=== PATIENT | male | born 1935 | race Caucasian/White ===

== ENCOUNTER 2019-01-20 07:59 | Inpatient (IN) | payer OTHER, MEDICAID ==
--- NOTE | 2019-01-20 08:04 | EDPHY ---
HPI/HX/ROS/PE/MDM Narrative: CHIEF COMPLAINT: Right hip pain following unwitnessed fall HPI: This patient is an 83 year old male with history of dementia, hyperthyroidism, and cancer. He arrives today via EMS from his assisted living facility complaining of right hip pain following an unwitnessed fall. He was found down yesterday evening, having had an episode of diarrhea. Staff at his assisted living facility helped him into bed and he was able to sleep with Tylenol and clonazepam. This morning, he continued to complain of pain to the right hip, and staff called for EMS. EMS reports they noted a possible deformity to the right hip. No recent illness or other traumatic events reported. HPI largely obtained from EMS, firearms instructor, and daughter at bedside secondary to the patient's advanced dementia and limited speech capability. REVIEW OF SYSTEMS: A comprehensive 10 system review of systems is otherwise negative aside from elements mentioned in the history of present illness and medical decision making. PMH: Dementia. History of cancer s/p lymphadenectomy. Hyperthyroidism. SOCIAL HISTORY: Lives at [place]. Daughter and firearms instructor at bedside. PHYSICAL EXAM: Limited due to patient's dementia. General:Patient is alert, in no acute distress. ENT:Eyes are normal to inspection. ENT inspection normal. Neck: Normal inspection. Full range of motion. Respiratory:No respiratory distress. Breath sounds normal bilaterally. Cardiovascular: Regular rate and rhythm. Strong peripheral pulses. Normal cap refill. Abdomen:The abdomen is nontender to palpation. There are no peritoneal signs. Back: Normal to inspection. No tenderness to palpation. Skin: Normal color. No rash. Warm and dry. Extremities: Right hip tenderness. Otherwise atraumatic. Neuro: No focal deficits. ED Course: 8:03 Met EMS at bedside. 83 y/o male with history of dementia present with right hip pain following an unwitnessed fall yesterday evening. Exam reveals right hip tenderness.Exam limited due to patient's advanced dementia, but no other acute traumatic processes noted, no focal neuro deficits. Plan for x-ray of the right hip. IV established, plan for labs including CBC, chemistries. Plan to administer 2mg IV morphine for symptom relief. 8:50 Reviewed x-ray. Evidence of acute right femoral neck fracture. I discussed this with the patient's daughter. I recommended she discuss risks and benefits of surgical correction with the orthopedic surgeon. Plan to admit the patient to medicine with ortho consult. The patient's daughter is comfortable with this plan. 8:56 Spoke with hospitalist service. Dr. Newman accepts admission for right femoral neck fracture. 9:[address] Laurent, orthopedic surgeon. He will consult throughout the patient's admission. - Data Points Imaging Results: Imaging Impressions Hip X-Ray 01/20/19 08:08 Impression: Acute right femoral neck fracture with angulation. Imaging: I viewed and interpreted images myself Laboratory Results: Laboratory Results 01/20/19 08:20 01/20/19 08:20 01/20/19 01/20/19 08:20 08:20 WBC 9.51 10^3/uL H 10^3/uL (3.80-9.50) RBC 5.12 10^6/uL 10^6/uL (4.40-6.38) Hgb 14.1 g/dL g/dL (13.7-17.5) Hct 42.1 % % (40.0-51.0) MCV 82.2 fL fL (81.5-99.8) MCH 27.5 pg L pg (27.9-34.1) MCHC 33.5 g/dL g/dL (32.4-36.7) RDW 13.4 % % (11.5-15.2) Plt Count 205 10^3/uL 10^3/uL (150-400) MPV 12.1 fL H fL (8.7-11.7) Neut % (Auto) 81.5 % H % (39.3-74.2) Lymph % (Auto) 11.1 % L % (15.0-45.0) [place] % (Auto) 6.7 % % (4.5-13.0) Eos % (Auto) 0.2 % L % (0.6-7.6) Baso % (Auto) 0.2 % L % (0.3-1.7) Nucleat RBC Rel Count 0.0 % % (0.0-0.2) Absolute Neuts (auto) 7.74 10^3/uL H 10^3/uL (1.70-6.50) Absolute Lymphs (auto) 1.06 10^3/uL 10^3/uL (1.00-3.00) Absolute Monos (auto) 0.64 10^3/uL 10^3/uL (0.30-0.80) Absolute Eos (auto) 0.02 10^3/uL L 10^3/uL (0.03-0.40) Absolute Basos (auto) 0.02 10^3/uL 10^3/uL (0.02-0.10) Absolute Nucleated RBC 0.00 10^3/uL 10^3/uL (0-0.01) Immature Gran % 0.3 % % (0.0-1.1) Immature Gran # 0.03 10^3/uL 10^3/uL (0.00-0.10) Sodium 142 mEq/L mEq/L (135-145) Potassium 4.2 mEq/L mEq/L (3.5-5.2) Chloride 111 mEq/L H mEq/L (97-110) Carbon Dioxide 22 mEq/l mEq/l (22-31) Anion Gap 9 mEq/L mEq/L (6-14) BUN 32 mg/dL H mg/dL (7-23) Creatinine 1.4 mg/dL H mg/dL (0.7-1.3) Estimated GFR 49 Glucose 143 mg/dL H mg/dL (70-100) Calcium 9.0 mg/dL mg/dL (8.5-10.4) Medications Given: Discontinued Medications Morphine Sulfate (Morphine) 2 mg IVP EDNOW ONE Stop: 01/20/19 08:22 Last Admin: 01/20/19 08:24 Dose: 2 mg General Initial Vital Signs: Initial Vital Signs Temperature (C) 37.0 C 01/20/19 08:04 Heart Rate 67 01/20/19 08:04 Respiratory Rate 16 01/20/19 08:04 Blood Pressure 165/81 H 01/20/19 08:04 O2 Sat (%) 96 01/20/19 08:04 O2 Delivery Mode Room Air Allergies/Adverse Reactions: No Known Allergies Allergy (Verified 01/20/19 08:06) Home Medications: Medication Instructions Recorded Aspirin [Aspirin 81mg (OTC)] 81 mg PO DAILY 07/20/13 Cephalexin [Keflex (RX)] 500 mg PO DAILY 07/20/13 Citalopram [CeleXA] 20 mg PO DAILY 07/20/13 Memantine HCl [Namenda 10 mg] 10 mg PO BID 07/20/13 ACETAMINOPHEN 500 mg PO DAILY 09/03/18 CLONAZEPAM 0.25 mg PO BID 09/03/18 Donepezil HCl 10 mg PO DAILY 09/03/18 Famotidine 20 mg PO DAILY 09/03/18 Miralax 17 gm (*) 17 gm PO DAILY 09/03/18 ZyPREXA 2.5 mg (*) 2.5 mg PO DAILY 09/03/18 Departure - Departure Disposition: [facility] Acute Clinical Impression: Fracture of femoral neck, right, closed Qualifiers: Encounter type: initial encounter Qualified Code(s): S72.001A - Fracture of unspecified part of neck of right femur, initial encounter for closed fracture Condition: Fair Report Scribed for: Rafat Cifuentes Report Scribed by: Nova Townsend Date of Report: 01/20/19 Time of Report: 08:45 Physician Review and Approval Statement: Portions of this note were transcribed by an ED scribe. I personally performed the history, physical exam, and medical decision making; and confirm the accuracy of the information in the transcribed note.
[2019-01-20 08:46] LABS: PLATELET COUNT 205 10^3/uL (150-400)
--- NOTE | 2019-01-20 11:09 | PDCONSULT ---
Chemical Research Technician Note: Orthopaedic Consult Note DOS: 01/20/2019 CC: Right hip pain HPI: 83y M h/o dementia p/w Right femoral neck fracture (called to floor bedside by ED to evaluate). Fell last night and unable to ambulate. Baseline community ambulator. Accompanied today by daughter (POA) PMHx: severe dementia, thyroid dysfunction, h/o cancer requiring lymph node resection (in remission for decades) PSHx: CHildhood retinal detachment surgery, lymph node resection All: NKDA Meds: includes olanzapine, memantine, donepezil, clonazepam, citalopram SocHx: Nonsmoker, no EtOH ROS: dementia at baseline. Otherwise in good health across systems at baseline with thyroid medication PE: AxOx3 Unlabored BUE: moving, some tremor, no TTP at shoulder/elbow/wrist. 2+radial pulse LLE: No TTP hip/knee/ankle. No edema. 2+DP RLE: TTP right hip and wiith log roll. NO edema at thigh/knee/ankle/foot. PROM ankle without pain. 2+ DP Imaging: Right femoral neck fracture, displaced. A/P: 83y M w dementia p/w Right femoral neck fracture - Plan for OR today for Right hip hemiarthroplasty. Discussed risks of surgery with POA daughter (including malpositioning, infection, dislocation). - NPO (last PO was 6:30 AM) - NWB RLE for now - Appreciate hospitalist care.
[2019-01-20] MEDS ORDERED: ONDANSETRON 4 MG/2 ML VIAL IVP PRN ×2 (12:24→16:04)
[2019-01-20] MEDS ORDERED: ONDANSETRON DISINTEGRATING 4 MG TAB PO PRN (12:24)
[2019-01-20] MEDS ORDERED: ACETAMINOPHEN 325 MG TAB PO PRN (12:24)
[2019-01-20] MEDS ORDERED: NS 1,000 ML IV SCH (12:30)
[2019-01-20] MEDS: ACETAMINOPHEN 500 MG TAB PO SCH ×2 (12:40→20:20)
[2019-01-20] MEDS ORDERED: BUPIVACAINE/EPI 0.5% 30 ML SDV ONE (12:46)
[2019-01-20] MEDS ORDERED: BACITRACIN ZINC 0.5 OZ OINTTUBE TP ONE (12:46)
[2019-01-20] MEDS ORDERED: EPINEPHrine 1 MG/ML INJ ONE (12:46)
--- NOTE | 2019-01-20 14:21 | GHP ---
[f rep st] HISTORY AND PHYSICAL DATE OF ADMISSION: 01/20/2019 CHIEF COMPLAINT: Hip pain. HISTORY OF PRESENT ILLNESS: The patient is an 83-year-old male with a history of severe dementia, hy perthyroidism, and cancer. He was brought to the emergency room today via EMS from his assisted [facility] facility, complaining of right hip pain. He had an unwitnessed fall. Per reports, the patient dang d a fall yesterday, 1 day prior to coming, after an episode of diarrhea. He was assisted by the staf f and was able to sleep with the help of Tylenol and clonazepam. This morning, complains of right hi p pain, reoccurred, and the patient was brought to the emergency room. History is obtained from marita ríos, as well as emergency room physician, as the patient has minimal speech capability, secondary to his dementia. REVIEW OF SYSTEMS: Comprehensive 10 system review is notable to the best of my ability, other than H PI. PAST MEDICAL HISTORY: 1. Severe dementia. 2. History of cancer, status post lymphadenectomy. 3. Hyperthyroidism. SOCIAL HISTORY: The patient resides at [place]. He has a daughter and a gynecological assistant. He does not smoke tobacco or drink alcohol. PHYSICAL EXAMINATION: GENERAL: The patient is alert, in no acute distress. Physical exam is limite d, secondary to the patient's dementia. HEENT: Normocephalic. Atraumatic. Mucosal membranes are m oist. Pupils equal, round, and reactive to light. RESPIRATORY: Lungs are clear to auscultation halle aterally. No rhonchi or wheezes noted. CARDIOVASCULAR: Regular rate and rhythm. No gallop appreci ated. ABDOMEN: Bowel sounds are positive. Soft. Nontender. There is no guarding and no rigidity noted. BACK: Normal to inspection. No tenderness to palpation. SKIN: Normal color. Warm and dry . No rashes or lesions identified. EXTREMITIES: Without clubbing or cyanosis appreciated. Right e xtremity is tender to movement. NEUROLOGICAL: The patient has no focal deficits. FAMILY HISTORY: Noncontributory. PAST SURGICAL HISTORY: Unclear. LABORATORY EVALUATION: White count of 9.5, BUN of 32 and creatinine 1.4 RADIOLOGICAL STUDY: Hip x-ray notes an acute right femoral neck fracture with angulation. ALLERGIES: The patient has no known allergies. MEDICATIONS: 1. MiraLAX. 2. Zyprexa. 3. Namenda. 4. Pepcid. 5. Clonazepam. 6. Celexa. 7. Keflex. 8. Aspirin. 9. Tylenol. ASSESSMENT AND PLAN: The patient is an 83-year-old male with severe dementia, presenting with right hip pain. He was evaluated and diagnosed with: 1. Right hip fracture. He did receive a consultation from Dr. Laurent of Orthopedics. It is recommend ed that the patient have surgical intervention today. This was discussed with the patient's daughter , who is his Power of Seismic Plotter. He will be made n.p.o.,be nonweightbearing for now and have surgical intervention this afternoon with Dr. Laurent. He needs no further evaluation prior to his surgical int ervention. 2. Severe dementia. The patient is at his baseline mentation. 3. Pain. His pain appears to be managed at this time. Pain medications have been ordered as needed . 4. Do not resuscitate. 5. Diet. N.p.o. for now. I have discussed the patient's plan of care with Dr. Laurent, as well as the RN. /[id number]/MODL
--- NOTE | 2019-01-20 14:34 | PDANEPAE ---
ANE History of Present Illness right hip fracture ANE Past Medical History - Cardiovascular History Hx Hypertension: No Hx Arrhythmias: No Hx Chest Pain: No Hx Coronary Artery / Peripheral Vascular Disease: No Hx CHF / Valvular Disease: No Hx Palpitations: No - Pulmonary History Hx COPD: No Hx Asthma/Reactive Airway Disease: No Hx Recent Upper Respiratory Infection: No Hx Oxygen in Use at Home: No Hx Sleep Apnea: No - Neurologic History Hx Cerebrovascular Accident: No Hx Seizures: No Hx Dementia: Yes - Endocrine History Hx Diabetes: No Hypothyroid: No Hyperthyroid: Yes Obesity: no - Renal History Hx Renal Disorders: Yes Renal History Comment: Stage 2 CKD - Liver History Hx Hepatic Disorders: No - Neurological & Psychiatric Hx Hx Neurological and Psychiatric Disorders: Yes Neurological / Psychiatric History Comment: Dementia, depressive episodes, generalized anxiety disorder. - Cancer History Hx Cancer: No - Congenital Disorder History Hx Congenital Disorders: No - GI History Hx Gastrointestinal Disorders: Yes Gastrointestinal History Comment: GERD - Chronic Pain History Chronic Pain: No ANE Review of Systems Review of systems is: negative Review of Systems: - Exercise capacity Exercise capacity: >=4 METS ANE Patient History - Allergies Allergies/Adverse Reactions: No Known Allergies Allergy (Verified 01/20/19 08:06) - Home Medications Home medications: home medication list seen and reviewed Home Medications: Aspirin [Aspirin 81mg (OTC)] 81 mg PO DAILY 07/20/13 [Last Taken 01/19/19] Cephalexin [Keflex (RX)] 500 mg PO DAILY@1700 07/20/13 [Last Taken 01/19/19] Citalopram [CeleXA] 20 mg PO DAILY 07/20/13 [Last Taken 01/19/19] Memantine HCl [Namenda 10 mg] 10 mg PO BID 07/20/13 [Last Taken 01/19/19] Acetaminophen [Tylenol ES 500 mg (*)] 500 mg PO BID 09/03/18 [Last Taken 06:30] Donepezil HCl 10 mg PO HS 09/03/18 [Last Taken 01/19/19] Famotidine [Pepcid 20 MG (*)] 20 mg PO DAILY 09/03/18 [Last Taken 01/19/19] OLANZapine [ZyPREXA 2.5 mg (*)] 2.5 mg PO DAILY@1700 09/03/18 [Last Taken ] Polyethylene Glycol 3350 [Miralax 17 gm (*)] 17 gm PO DAILY 09/03/18 [Last Taken Unknown] clonazePAM [Clonazepam] 0.25 mg PO BID@07,17 09/03/18 [Last Taken 01/20/19 06:30 ] - NPO status NPO Status: no food or drink >8 hours NPO Since - Liquids (Date): 01/20/19 NPO Since - Liquids (Time): 06:30 NPO Since - Solids (Date): 01/20/19 NPO Since - Solids (Time): 06:30 - Anes Hx Anes Hx: no prior problems - Smoking Hx Smoking Status: Unknown if ever smoked - Family Anes Hx Family Anes Hx: none ANE Labs/Vital Signs - Labs Result Diagrams: 01/20/19 08:20 01/20/19 08:20 - Vital Signs Vital Signs: reviewed preoperatively; see RN documention for details Blood Pressure: 138/70 Heart Rate: 69 Respiratory Rate: 16 O2 Sat (%): 91 Height: 190.5 cm Weight: 88.451 kg ANE Physical Exam - Airway Neck exam: FROM Mallampati Score: Unable to assesss (does not follow commands 2/2 severe dementia) - Pulmonary Pulmonary: no respiratory distress, clear to auscultation - Cardiovascular Cardiovascular: regular rate and rhythym - ASA Status ASA Status: III, E ANE Anesthesia Plan Anesthesia Plan: GA w LMA
[2019-01-20] MEDS ORDERED: CEFAZOLIN 2 GM/DEXTROSE/100 ML BAG IV ONE (14:36)
[2019-01-20] MEDS ORDERED: LIDOCAINE 1% 300 MG/30 ML SDV ONE (14:38)
[2019-01-20] MEDS ORDERED: BUPIVACAINE 0.25% 30 ML SDV ONE (14:38)
[2019-01-20] MEDS ORDERED: fentaNYL 100 MCG/2 ML INJ ONE ×2 (14:38→15:37)
[2019-01-20] MEDS ORDERED: PROPOFOL/EMULSION 500 MG/50 ML BOTTLE IV ONE ×3 (14:38→15:40)
[2019-01-20] MEDS ORDERED: ceFAZolin 1 GM VIAL ONE (15:38)
[2019-01-20] MEDS ORDERED: PHENYLEPHRINE HCL 100 MCG/ML SYR IVP PRN (16:04)
[2019-01-20] MEDS ORDERED: LR 500 ML IV PRN (16:04)
[2019-01-20] MEDS ORDERED: NALOXONE HCL 0.4 MG/ML INJ IVP PRN (16:04)
[2019-01-20] MEDS ORDERED: LABETALOL HCL 5 MG/ML 20 ML MDV IVP PRN (16:04)
[2019-01-20] MEDS ORDERED: fentaNYL 100 MCG/2 ML INJ IVP PRN (16:04)
[2019-01-20] MEDS ORDERED: oxyCODONE IR 5 MG TAB PO PRN (16:04)
[2019-01-20] MEDS ORDERED: MEPERIDINE 25 MG/0.5 ML AMP IVP PRN (16:04)
[2019-01-20] MEDS ORDERED: HYDROmorphONE/DILAUDID 2 MG/ML INJ IVP PRN (16:04)
[2019-01-20] MEDS ORDERED: ALBUTEROL 3 ML DEYVIAL IH PRN (16:04)
[2019-01-20] MEDS ORDERED: PROMETHAZINE HCL 25 MG/ML INJ IVP PRN (16:04)
[2019-01-20] MEDS ORDERED: ACETAMINOPHEN 500 MG TAB PO PRN (16:04)
[2019-01-20] MEDS ORDERED: DEXAMETHASONE 4 MG/ML VIAL IVP PRN (16:04)
[2019-01-20] MEDS ORDERED: METOCLOPRAMIDE 10 MG/2 ML VIAL IVP PRN (16:04)
--- NOTE | 2019-01-20 16:21 | PDMN ---
Medical Necessity Medical necessity: MCG S600 Hip: Displaced Fracture of Femoral Neck, Hemiarthroplasty , 3 days: 83 yo s/p R hip hemiarthroplasty post unwitnessed fall w/ c/o hip pain, imaging shows hip fx, R fem neck. Hx severe dementia, hypothyroid, ca s/p lymphadenectomy. MC IP only.
[2019-01-20] MEDS ORDERED: PROPOFOL 200 MG/20 ML VIAL ONE ×4 (16:28→17:59)
--- NOTE | 2019-01-20 17:12 | ASMTCMCOM ---
CM Note CM Note Notes: Pt presented to the Emergency Department via EMS s/p an unwitnessed fall with right hip pain. Pt was found to have a right hip fracture. History includes severe dementia, hyperthyroidism and cancer. Per MD notes, pt lives in Assisted Living at [facility]. Pt's dghtr is his POA. He also has a restaurant inspector. Discharge needs remain unclear at this time. CM will continue to follow. Discharge Plan: To be determined Date Signed: 01/20/2019 05:11 PM Electronically Signed By:Katheryn Wei RN
--- NOTE | 2019-01-20 18:36 | POSTOPPROG ---
Post Op Note Date of Operation: 01/20/19 Surgeon: Clark Laurent Anesthesia: GET(General Endotracheal) Pre-op Diagnosis: Right femoral neck fracture Post-op Diagnosis: Same Procedure: Right hip hemiarthroplasty Inf/Abcess present in the surg proc area at time of surgery?: No EBL: 100-500 Complications: Anterior neck incomplete fracture intraop. cerclage cable placed to fix
--- NOTE | 2019-01-20 18:40 | POSTANESTH ---
Post Anesthetic Evaluation Cardiovascular Status: Normal, Stable Respiratory Status: Normal, Stable Level of Consciousness/Mental Status: Other, See Comment (Pt severely demented. Not following commands in pre-op) Pain Control: Adequate, Prn Tx Ordered Nausea/Vomiting Control: Adequate, Prn Tx Ordered Complications Possibly Related to Anesthesia: None Noted
--- NOTE | 2019-01-20 18:52 | SUROPNOTE ---
[facility] Operative Report - Surgery Operative Report DOS: 01/20/2019 Attg: Clark Laurent MD Preop Dx: Right displaced femoral neck fracture Postop Dx: Same Procedure: Right hip hemiarthroplasty Anesthesia: General Indication: 83y M with dementia s/p fall over night p/w right displaced femoral neck fracture. DNR suspended for surgery by daughter, JUAN DIEGO. Procedure Notes: Consent was reviewed with the family and they elected to proceed. The patient was taken to OR and anesthesia was induced on the bed. He was placed in lateral position on the pegboard on the operating table. Axillary roll placed. Bony prominences on the down leg were padded. The leg was prepped and draped in typical fashion. A timeout was performed confirming the patient, procedure, antibiotic status, and surgical site. We made a~longitudinal~incision centered on the proximal femur and greater trochanter. We dissected down to the iliotibial band. The band was split and we dissected down to the greater trochanter. We made a transverse incision across the anterior third of the~vastus~insertion and the medius insertion. The medius was carefully partially released from the anterior aspect to give good access to the anterior neck and head. We used a Paige retractor to~retract~the~minimus~and reflected rectus off of the~ anterior~neck as well. We resected a rectangular portion of anterior capsule off of the neck down to the acetabular~rim anteriorly, noting the fractured edge of the femoral neck. We used the reciprocating saw to make a neck cut after identifying~the position of the lesser trochanter. We inserted the corkscrew into the femoral head. The femoral head was removed. We sized the removed head at 58mm. We placed a trial head into the socket and assessed for snug fit until a satisfactory trial was selected. Next, we used a box osteotome to clear out the lateral neck and trochanteric entrance. The canal~finder was inserted. Using a series of reamers, and broaches , we prepared the femur for implantation. We trialed a head and neck combination onto a stable, snug broach. We reduced the trials into the socket and tested the leg for motion. during flexion with internal rotation, the physician assistant certified forced the leg a little past impingement, and we heard a pop. The broach was loose and an anterior crack in the cut anterior edge of hte neck was noted. The crack was ~20 mm long but did not exit out anywhere. A cerclage wire was placed around the crack to secure the femoral neck from propagation, the sciatic nerve was palpated to ensure it was not caught. We prepared the femoral stem for cement. We placed the cement restrictor into the femoral shaft. It was washed and dried. We inserted cement and pressurized it. We then placed the femoral stem with an appropriate amount of~anteversion. We applied pressure on the stem, making sure the collar was~apposed to the neck edge, until the cement hardened. . We placed the trial head back on the stem with a +5 head, reduced the hip, and tested a range of motion and assessed the leg lengths, which ranged even better. We placed the final uni/bipolar head on the neck. We reduced the hip and~went through a range of motion and tested leg lengths. We were satisfied with the stability and length. We obtained an intraop image to ensure that the hip was in proper location We thoroughly irrigated out the hip. We reattached the medius and~vastus~edges together. We closed the IT band with #1 Vicryl. We then closed the fat,~subcutaneous layer , and skin in a series of layers. We closed the subcutaneous layer with 2-O Vicryl. We ended with a staple closure for the skin. A sterile dressing was applied to the leg. We brought the patient back to a supine position and transferred~her~to the bed. The patient was taken to the PACU for further observation and monitoring. Count was correct at the conclusion of the case Implants: Giulia Omnifit HFx 132 hip stem, size 7. C-Taper LFIT head 26mm +5, UHR bipolar head 58mm OD Complications: Intraop anterior neck crack, secured with cerclage wire EBL: 200cc Drain: None
[2019-01-20] MEDS: CEPHALEXIN 500 MG CAP PO SCH (19:08)
[2019-01-20] MEDS: clonazePAM 0.5 MG TAB PO SCH (19:08)
[2019-01-20] MEDS: MEMANTINE HCL 5 MG TAB PO SCH (20:20)
[2019-01-20] MEDS: DONEPEZIL HCL 5 MG TAB PO SCH (20:20)
[2019-01-21] MEDS ORDERED: HYDROmorphONE/DILAUDID 1 MG/ML INJ IVP PRN (05:31)
[2019-01-21] MEDS: ceFAZolin 2 GM/DEXTROSE 100 ML IV SCH ×3 (06:09→22:21)
[2019-01-21] MEDS: ACETAMINOPHEN 650 MG SUPP PR PRN ×2 (06:22→21:15)
[2019-01-21] MEDS ORDERED: NS 500 ML IV ONE (08:41)
--- NOTE | 2019-01-21 08:41 | HOSPPROG ---
Hospitalist Progress Note Assessment/Plan: 83 year old male with pmh of severe dementia admitted after a fall for a hip fracture. Hip fracture-Now post op day one. post op management per ortho, PT/OT, pain control, DVT prophylaxis Hypotension- seemed to be fluid responsive. Gave a 500cc bolus this am, and pressures normalized. Tachycardia- possibly related to dehydration. Responded to bolus. He still has a hr around 100-105. checking repeat CBC, CMP, urinalysis this morning to ensure not anemic or infected. He is not hypoxemic but CXR this mornign showing interstitial lung disease. If remains tachycardic, may need obtain CTA to rule out PE severe dementia- per daughter, slightly more somnolent than normal. PPX- SCDs, heparin per ortho Fluids- restarted NS as he is not taking po Lytes- repeat labs pending Nutrition- regular if tolerated Cor- DNR Dispo- inpatient for hip fracture. Subjective: not responsive. appears comfortable. Objective: Vital Signs Temp Pulse Resp BP Pulse Ox 37.2 C 115 H 14 95/62 L 20 L 01/21/19 07:50 01/21/19 07:50 01/21/19 07:50 01/21/19 07:50 01/21/19 07:50 Laboratory Results 01/21/19 04:38 01/21/19 04:38 01/20/19 01/21/19 01/22/19 05:59 05:59 05:59 Intake Total 1969 Output Total 1050 Balance 919 - Physical Exam Constitutional: no apparent distress, appears nourished, not in pain Eyes: PERRL, anicteric sclera, EOMI Ears, Nose, Mouth, Throat: moist mucous membranes, hearing normal, ears appear normal, no oral mucosal ulcers Cardiovascular: tachycardia Respiratory: no respiratory distress, no rales or rhonchi, clear to auscultation Gastrointestinal: normoactive bowel sounds, soft, non-tender abdomen, no palpable masses Genitourinary: no bladder fullness, no bladder tenderness, no renal bruits Skin: no rashes or abrasions, no fluctuance, no induration Musculoskeletal: generalized weakness Neurologic: other (somnolent but arousable. ) Psychiatric: encephalopathic ICD10 Worksheet Patient Problems: Problems Problem Status Onset Fracture of femoral neck, right, closed Acute
[2019-01-21 09:11] LABS: PLATELET COUNT 184 10^3/uL (150-400)
[2019-01-21] MEDS: ACETAMINOPHEN 500 MG TAB PO SCH ×2 (10:30→21:38)
[2019-01-21] MEDS: clonazePAM 0.5 MG TAB PO SCH ×2 (10:30→18:24)
[2019-01-21] MEDS: POLYETHYLENE GLYCOL 3350 17 GM PKT PO SCH (10:31)
[2019-01-21] MEDS: FAMOTIDINE 20 MG TAB PO SCH (10:31)
[2019-01-21] MEDS: CITALOPRAM 20 MG TAB PO SCH (10:31)
[2019-01-21] MEDS: MEMANTINE HCL 5 MG TAB PO SCH ×2 (10:31→21:38)
[2019-01-21] MEDS: NS 1,000 ML IV SCH (14:49)
--- NOTE | 2019-01-21 16:30 | ASMTCMCOM ---
CM Note CM Note Notes: Pt had surgery on 01/20 for hip fracture. Pt is resident at [facility]. PT recommending SNF at this time. Referral sent to [facility]. Pt's dtr is POA. CM to follow. D/C Plan: [facility] Date Signed: 01/21/2019 04:29 PM Electronically Signed By:Sussy Hernandez
[2019-01-21] MEDS: OLANZapine 2.5 MG TAB PO SCH (18:24)
[2019-01-21] MEDS: DONEPEZIL HCL 5 MG TAB PO SCH (21:38)
[2019-01-22] MEDS: ACETAMINOPHEN 650 MG SUPP PR PRN ×2 (03:22→08:00)
[2019-01-22] MEDS: NS 1,000 ML IV SCH (04:35)
--- NOTE | 2019-01-22 04:58 | SOAPPROG ---
SAMIR Progress Note Assessment/Plan: Assessment: 83y M w femoral neck fracture s/p Right Hip hemiarthroplasty Plan: - Responding a little better to motion and stimulation with R foot neuro check compared to when i saw him yesterday AM. Said "Ow' this morning and gripped my hand back today. - seems to be responding to fluid support - Touchdown weightbearing for RLE if possible. With dementia, may not be able to maintain, and if so, OK to try WBAT RLE if fails TDWB attempt - Hip precautions - PT/OT 01/22/19 04:55 Subjective: Resting in bed. Objective: Vital Signs Temp Pulse Resp BP Pulse Ox 36.9 C 100 21 H 133/60 H 96 01/22/19 03:42 01/22/19 03:42 01/22/19 03:42 01/22/19 03:42 01/22/19 03:42 Laboratory Results 01/21/19 09:00 01/21/19 09:00 01/20/19 01/21/19 01/22/19 05:59 05:59 05:59 Intake Total 1969 325 Output Total 1050 300 Balance 919 25 RLE: CDI dressing. WWP limb. Spontaneous movement of toes/ankle and in response to stimulation. ICD10 Worksheet Patient Problems: Problems Problem Status Onset Fracture of femoral neck, right, closed Acute
[2019-01-22 05:18] LABS: PLATELET COUNT 143 10^3/uL (150-400)
[2019-01-22] MEDS: MEMANTINE HCL 5 MG TAB PO SCH ×2 (08:28→23:57)
[2019-01-22] MEDS: CITALOPRAM 20 MG TAB PO SCH (08:29)
[2019-01-22] MEDS: ACETAMINOPHEN 500 MG TAB PO SCH ×2 (09:06→23:44)
[2019-01-22] MEDS: FAMOTIDINE 20 MG TAB PO SCH (09:06)
[2019-01-22] MEDS: POLYETHYLENE GLYCOL 3350 17 GM PKT PO SCH (09:07)
[2019-01-22] MEDS: clonazePAM 0.5 MG TAB PO SCH ×2 (09:09→16:41)
[2019-01-22] MEDS ORDERED: IOPAMIDOL (ISOVUE 370) 100 ML BTL IV ONE (10:29)
--- NOTE | 2019-01-22 15:53 | HOSPPROG ---
Hospitalist Progress Note Assessment/Plan: 83 year old male with pmh of severe dementia admitted after a fall for a hip fracture. Hip fracture-Now POD 2. post op management per ortho, PT/OT, pain control, DVT prophylaxis Hypotension- Resolved once fluids restarted. not taking adequate PO. Continue IVNS for now. Tachycardia- developed two days ago rather abruptly. Now has had a mild tachycardia from 100-110 that has persisted despite fluids. No white count, urine looks clean, CXR read as interstitial lung disease, no hypoxia. No obvious source of infection. Not getting DVT prophylaxis which raises concern for PE -CT PE to rule out possible PE severe dementia- per daughter, slightly more somnolent than normal. he is a little more awake to me today. CKD- has baseline renal disease. He appears to be at about his base. monitor renal function. PPX- SCDs, heparin per ortho Fluids- restarted NS as he is not taking po Lytes- repeat labs pending Nutrition- regular if tolerated Cor- DNR Dispo- inpatient for hip fracture. Subjective: appears comfortable. Objective: Vital Signs Temp Pulse Resp BP Pulse Ox 37.7 C 105 H 28 H 138/71 H 96 01/22/19 15:35 01/22/19 15:35 01/22/19 15:35 01/22/19 15:35 01/22/19 15:35 Laboratory Results 01/22/19 04:52 01/22/19 04:52 01/21/19 01/22/19 01/23/19 05:59 05:59 05:59 Intake Total 1969 325 400 Output Total 1050 550 300 Balance 919 -225 100 - Physical Exam Constitutional: no apparent distress, appears nourished, not in pain Eyes: PERRL, anicteric sclera, EOMI Ears, Nose, Mouth, Throat: moist mucous membranes, hearing normal, ears appear normal, no oral mucosal ulcers Cardiovascular: tachycardia Respiratory: no respiratory distress, no rales or rhonchi, clear to auscultation Gastrointestinal: normoactive bowel sounds, soft, non-tender abdomen, no palpable masses Genitourinary: no bladder fullness, no bladder tenderness, no renal bruits Skin: no rashes or abrasions, no fluctuance, no induration Neurologic: other (awakens to calling his name. will shake hand. goes back to sleep. ) Psychiatric: encephalopathic, poor judgement, poor memory Lymph, Heme, Immunologic: no cervical LAD, no supraclavicular LAD ICD10 Worksheet Patient Problems: Problems Problem Status Onset Fracture of femoral neck, right, closed Acute
[2019-01-22] MEDS: OLANZapine 2.5 MG TAB PO SCH (16:42)
[2019-01-22] MEDS ORDERED: ACETAMINOPHEN 650 MG/20.3 ML UDCUP PO PRN (17:00)
[2019-01-22] MEDS: CEPHALEXIN 500 MG CAP PO SCH (17:42)
[2019-01-22] MEDS: HEPARIN 5,000 UNIT/0.5 ML INJ SC SCH (22:50)
[2019-01-22] MEDS: DONEPEZIL HCL 5 MG TAB PO SCH (23:57)
[2019-01-23] MEDS: FAMOTIDINE 20 MG/NACL 50 ML IV SCH ×3 (00:01→21:21)
[2019-01-23] MEDS ORDERED: POLYETHYLENE GLYCOL 3350 17 GM PKT PO PRN (00:48)
[2019-01-23] MEDS ORDERED: BISACODYL 10 MG SUPP PR PRN (00:48)
[2019-01-23] MEDS ORDERED: MAGNESIUM HYDROXIDE 30 ML UDCUP PO PRN (00:48)
[2019-01-23] MEDS ORDERED: LACTULOSE 20 GM/30 ML UDCUP PO PRN (00:48)
[2019-01-23 05:15] LABS: PLATELET COUNT 140 10^3/uL (150-400)
[2019-01-23] MEDS: ACETAMINOPHEN 650 MG SUPP PR PRN (06:25)
[2019-01-23] MEDS: ACETAMINOPHEN 500 MG TAB PO SCH ×2 (10:48→23:17)
[2019-01-23] MEDS: clonazePAM 0.5 MG TAB PO SCH ×2 (10:48→17:49)
[2019-01-23] MEDS: SENNOSIDES/DOCUSATE SODIUM TAB PO SCH ×2 (10:49→23:17)
[2019-01-23] MEDS: CITALOPRAM 20 MG TAB PO SCH (10:49)
[2019-01-23] MEDS: MEMANTINE HCL 5 MG TAB PO SCH ×2 (10:49→23:17)
[2019-01-23] MEDS: POLYETHYLENE GLYCOL 3350 17 GM PKT PO SCH (10:49)
[2019-01-23] MEDS: HEPARIN 5,000 UNIT/0.5 ML INJ SC SCH ×2 (10:52→21:21)
--- NOTE | 2019-01-23 12:12 | CPEKG ---
Test Reason : OPEN Blood Pressure : / mmHG Vent. Rate : 113 BPM Atrial Rate : 114 BPM P-R Int : 161 ms QRS Dur : 088 ms QT Int : 345 ms P-R-T Axes : 061 -01 045 degrees QTc Int : 473 ms Sinus tachycardia Confirmed by Johnny Mullins ([id number]) on 01/23/2019 12:11:47 PM Referred By: Allison Newman Confirmed By:Johnny Mullins
--- NOTE | 2019-01-23 13:26 | HOSPPROG ---
Hospitalist Progress Note Assessment/Plan: 83 year old male with pmh of severe dementia admitted after a fall for a hip fracture. First encounter, chart reviewed. *right femoral neck fx -s/p r hip hemiarthroplasty -PT and OT *pna / concern for aspiration/ vomited last night -ST seeing on dysphagia diet -reviewed chest x ray which shows a right lower lobe infiltrate -Ertapenem initiated, get blood cultures -has tachypnea *nonresponsive but has severe dementia -hasn't received any narcotics, will get a stat CT of head now -will check an ABG stat *anemia -per his nurse-has black tarry stool, + OB screen -recheck h and h now -start a PPI *tachycardia -CTA shows no PE Hypotension- Resolved once fluids restarted. not taking adequate PO. Continue IVNS for now. *severe dementia -home meds resumed -essentially no *CKD -creat 1.3 *hyperglycemia -likely stress induced -check A1c *dvt prophylaxis: heparin *plan: updated his daughter, Marlee about the above findings ([phone]), will get blood cx, lactate, CT of head, ABG, procalcitonin. Subjective: Jerry is not responding. Objective: Vital Signs Temp Pulse Resp BP Pulse Ox 38.2 C 108 H 23 H 124/91 H 94 01/23/19 11:50 01/23/19 11:50 01/23/19 11:50 01/23/19 11:50 01/23/19 11:50 Laboratory Results 01/23/19 04:58 01/22/19 20:02 01/22/19 01/23/19 01/24/19 05:59 05:59 05:59 Intake Total 325 2125 Output Total 550 300 Balance -225 1825 - Physical Exam Constitutional: chronically ill appearing Cardiovascular: regular rate and rhythym, tachycardia Respiratory: No no respiratory distress (tachypnea, lung sounds w rhonchii scattered throughout) Genitourinary: other (condom catheter) Skin: warm, other (right hip area with swelling, dressing dry, intact) Psychiatric: other (obtunded) ICD10 Worksheet Patient Problems: Problems Problem Status Onset Fracture of femoral neck, right, closed Acute
[2019-01-23] MEDS ORDERED: ERTAPENEM 1 GM in NS 100 ML IV SCH (13:30)
[2019-01-23] MEDS: PANTOPRAZOLE SODIUM 40 MG VIAL IVP SCH ×2 (15:02→21:21)
[2019-01-23] MEDS: AMPICILLIN/SULBACTAM 3 GM in NS 100 ML IV SCH ×2 (15:32→21:20)
[2019-01-23] MEDS: OLANZapine 2.5 MG TAB PO SCH (17:49)
[2019-01-23] MEDS: DONEPEZIL HCL 5 MG TAB PO SCH (23:17)
[2019-01-23] MEDS: guaiFENesin 600 MG TAB.ER PO SCH (23:17)
[2019-01-24] MEDS: AMPICILLIN/SULBACTAM 3 GM in NS 100 ML IV SCH ×4 (03:14→22:13)
[2019-01-24 05:45] LABS: PLATELET COUNT 160 10^3/uL (150-400)
[2019-01-24] MEDS: clonazePAM 0.5 MG TAB PO SCH ×2 (07:27→16:15)
[2019-01-24] MEDS: guaiFENesin 600 MG TAB.ER PO SCH ×2 (09:52→21:24)
[2019-01-24] MEDS: CITALOPRAM 20 MG TAB PO SCH (09:53)
[2019-01-24] MEDS: MEMANTINE HCL 5 MG TAB PO SCH ×2 (09:53→21:24)
[2019-01-24] MEDS: ACETAMINOPHEN 500 MG TAB PO SCH ×2 (09:53→21:24)
[2019-01-24] MEDS: FAMOTIDINE 20 MG/NACL 50 ML IV SCH ×2 (09:53→23:07)
[2019-01-24] MEDS: POLYETHYLENE GLYCOL 3350 17 GM PKT PO SCH (09:54)
[2019-01-24] MEDS: SENNOSIDES/DOCUSATE SODIUM TAB PO SCH ×2 (09:54→23:05)
[2019-01-24] MEDS: HEPARIN 5,000 UNIT/0.5 ML INJ SC SCH ×2 (09:55→21:43)
[2019-01-24] MEDS: PANTOPRAZOLE SODIUM 40 MG VIAL IVP SCH ×2 (09:56→21:43)
--- NOTE | 2019-01-24 10:50 | ASMTCMCOM ---
CM Note CM Note Notes: Pts case discussed w/ Nafisa Ashby NP. Pt is not medically stable to d/c at this time. Updates sent to [facility] and CM updated Lyn. CM to follow. Plan: [facility] Date Signed: 01/24/2019 10:50 AM Electronically Signed By:DUARTE Marquez
[2019-01-24] MEDS ORDERED: FUROSEMIDE 20 MG/2 ML VIAL IVP ONE ×2 (14:52→22:00)
[2019-01-24] MEDS ORDERED: ACETAMINOPHEN 325 MG TAB PO ONE (14:52)
--- NOTE | 2019-01-24 15:36 | HOSPPROG ---
Hospitalist Progress Note Assessment/Plan: 83 year old male with pmh of severe dementia admitted after a fall for a hip fracture. *right femoral neck fx -s/p r hip hemiarthroplasty -PT and OT *pna / concern for aspiration/ vomited recently -ST seeing - on dysphagia diet -reviewed chest x ray which shows a right lower lobe infiltrate -Unasyn (01/23) -tachycardia and tachypnea both resolved -procalcitonin is 0.72 *nonresponsive but has severe dementia -CT scan of head on 01/23 showed nothing acute -suspect he was hypoxic and needed O2 *anemia, acute blood loss -will transfuse one unit now (reviewed w his daughter risks and benefits of transfusion) -per his nurse-has black tarry stool, + OB screen -start a PPI *tachycardia -CTA shows no PE -resolved *Hypotension- Resolved *severe dementia -home meds resumed *CKD -creat 1.3 *hyperglycemia -likely stress induced *dvt prophylaxis: heparin *plan: daughter, Marlee, at the bedside; reviewed w her his care. Will transfuse one unit of blood, stop IV fluids, give a small dose of Lasix after blood is infused. Recheck labs in a.m. Subjective: Jerry is sleepy, but more arousable today, not verbal during my interaction. Eyebrows furrow when I evaluated his hip. Objective: Vital Signs Temp Pulse Resp BP Pulse Ox 36.2 C 90 19 138/71 H 96 01/24/19 15:24 01/24/19 15:24 01/24/19 15:24 01/24/19 15:24 01/24/19 15:24 Laboratory Results 01/24/19 05:13 01/22/19 20:02 01/23/19 01/24/19 01/25/19 05:59 05:59 05:59 Intake Total 2125 180 Output Total 300 650 Balance 1825 -470 - Physical Exam Constitutional: chronically ill appearing, uncomfortable Cardiovascular: regular rate and rhythym, no murmur, rub, or gallop Respiratory: no respiratory distress, reduced air movement, rhonchi Gastrointestinal: normoactive bowel sounds Genitourinary: other (condom catheter in place) Skin: warm, No normal color (pale) Psychiatric: other (not very interactive) ICD10 Worksheet Patient Problems: Problems Problem Status Onset Fracture of femoral neck, right, closed Acute
[2019-01-24] MEDS: OLANZapine 2.5 MG TAB PO SCH (16:15)
[2019-01-24] MEDS: DONEPEZIL HCL 5 MG TAB PO SCH (21:24)
[2019-01-25] MEDS: AMPICILLIN/SULBACTAM 3 GM in NS 100 ML IV SCH ×4 (02:11→21:59)
[2019-01-25] MEDS ORDERED: POTASSIUM CL 20 MEQ/15 ML UDCUP PO ONE (07:25)
--- NOTE | 2019-01-25 07:39 | HOSPPROG ---
Hospitalist Progress Note Assessment/Plan: 83 year old male with pmh of severe dementia admitted after a fall for a hip fracture. *right femoral neck fx -s/p r hip hemiarthroplasty -PT and OT *pna / concern for aspiration/ vomited recently -ST seeing - on dysphagia diet -reviewed chest x ray which shows a right lower lobe infiltrate -Unasyn (01/23) -tachycardia and tachypnea both resolved -procalcitonin is 0.72 *episode of nonresponsive but has severe dementia -CT scan of head on 01/23 showed nothing acute -today he is interactive and awake *anemia, acute blood loss -improved w transfusion -per his nurse-has black tarry stool, + OB screen -start a PPI *tachycardia -CTA shows no PE -resolved *Hypotension- Resolved *severe dementia -home meds resumed *CKD -creat 1.3 *hyperglycemia -likely stress induced *hypokalemia -oral dose of K *dvt prophylaxis: heparin *plan: possible dc to rehab today or tomorrow, much improved Subjective: Darren is awake, smiling making 'growling sound' Objective: Vital Signs Temp Pulse Resp BP Pulse Ox 36.7 C 80 18 135/66 H 98 01/25/19 04:00 01/25/19 04:00 01/25/19 04:00 01/25/19 04:00 01/25/19 04:00 Laboratory Results 01/25/19 04:57 01/25/19 04:30 01/24/19 01/25/19 01/26/19 05:59 05:59 05:59 Intake Total 180 1110 Output Total 650 1350 Balance -470 -240 - Physical Exam Constitutional: no apparent distress, appears nourished, chronically ill appearing Eyes: PERRL Ears, Nose, Mouth, Throat: hearing normal Respiratory: no respiratory distress Gastrointestinal: normoactive bowel sounds Skin: warm, other (right hip w swelling), No normal color (pale) Neurologic: other (alert) Psychiatric: encephalopathic, No thought process linear ICD10 Worksheet Patient Problems: Problems Problem Status Onset Fracture of femoral neck, right, closed Acute
[2019-01-25] MEDS: ACETAMINOPHEN 500 MG TAB PO SCH ×2 (08:44→21:59)
[2019-01-25] MEDS ORDERED: FAMOTIDINE 20 MG TAB PO SCH (09:00)
[2019-01-25] MEDS: FAMOTIDINE 20 MG/NACL 50 ML IV SCH (09:17)
[2019-01-25] MEDS: PANTOPRAZOLE SODIUM 40 MG VIAL IVP SCH ×2 (09:31→22:02)
[2019-01-25] MEDS: clonazePAM 0.5 MG TAB PO SCH ×2 (09:33→18:21)
[2019-01-25] MEDS: guaiFENesin 600 MG TAB.ER PO SCH ×2 (09:34→22:00)
[2019-01-25] MEDS: CITALOPRAM 20 MG TAB PO SCH (09:34)
[2019-01-25] MEDS: SENNOSIDES/DOCUSATE SODIUM TAB PO SCH ×2 (09:34→22:03)
[2019-01-25] MEDS: HEPARIN 5,000 UNIT/0.5 ML INJ SC SCH ×2 (09:35→22:00)
[2019-01-25] MEDS: MEMANTINE HCL 5 MG TAB PO SCH ×2 (09:35→22:01)
[2019-01-25] MEDS: POLYETHYLENE GLYCOL 3350 17 GM PKT PO SCH (14:39)
[2019-01-25] MEDS: OLANZapine 2.5 MG TAB PO SCH (18:19)
[2019-01-25] MEDS: DONEPEZIL HCL 5 MG TAB PO SCH (22:00)
[2019-01-26] MEDS: AMPICILLIN/SULBACTAM 3 GM in NS 100 ML IV SCH ×4 (03:15→21:20)
--- NOTE | 2019-01-26 08:33 | HOSPPROG ---
Hospitalist Progress Note Assessment/Plan: 83 year old male with pmh of severe dementia admitted after a fall for a hip fracture. *right femoral neck fx -s/p r hip hemiarthroplasty -PT and OT *pna / concern for aspiration/ vomited recently -ST seeing - on dysphagia diet -reviewed chest x ray which shows a right lower lobe infiltrate -Unasyn (01/23) -tachycardia and tachypnea both resolved -procalcitonin is 0.72 *episode of nonresponsive but has severe dementia -CT scan of head on 01/23 showed nothing acute -today he is interactive and awake *anemia, acute blood loss -improved w transfusion -per his nurse-has black tarry stool, + OB screen -start a PPI *tachycardia -CTA shows no PE -resolved *Hypotension- Resolved *severe dementia -home meds resumed *CKD -creat 1.3 *hyperglycemia -likely stress induced *hypokalemia -oral dose of K *dvt prophylaxis: heparin *plan: dc to rehab today Subjective: Darren is not very interactive, but awakens easily this morning. Objective: Vital Signs Temp Pulse Resp BP Pulse Ox 36.3 C 86 14 159/84 H 92 01/26/19 08:00 01/26/19 08:00 01/26/19 08:00 01/26/19 08:00 01/26/19 08:00 Laboratory Results 01/25/19 04:57 01/25/19 04:30 01/25/19 01/26/19 01/27/19 05:59 05:59 06:59 Intake Total 1110 200 Output Total 1350 550 Balance -240 -350 - Physical Exam Constitutional: no apparent distress, chronically ill appearing Eyes: PERRL Ears, Nose, Mouth, Throat: hearing normal Cardiovascular: regular rate and rhythym Respiratory: no respiratory distress Gastrointestinal: normoactive bowel sounds Skin: warm, other (right hip w swelling, tender), No normal color (pale) Psychiatric: other (alert and awakenns) ICD10 Worksheet Patient Problems: Problems Problem Status Onset Fracture of femoral neck, right, closed Acute
--- NOTE | 2019-01-26 08:47 | PDIAF ---
- Diagnosis Diagnosis: r femoral neck fx s/p hemiathroplasty, asp pna, anemia, severe dementia Code Status: Do Not Resuscitate - Medication Management Discharge Medications: electronically signed and located in the Home Medication List. - Orders Services needed: Physical Therapy, Occupational Therapy Diet Recommendation: no restrictions on diet Diet Texture: Dysphagia 2 - Mechanically Altered - Chopped, Ground, Thin Liquids , Meds Crushed in Puree Additional Instructions: hold aspirin for next 2 weeks give 9 more doses of Augmentin hold Keflex while on this medication he had a positive heme stool, watch hgb and hct; may need further evaluation down the road continue heparin sq for dvt prophylaxis until more mobile activity per ortho - Labs/Radiology BMP Date: 01/28/19 (weekly) HCT/HGB Date: 01/28/19 (weekly) - Follow Up Care Current Providers and Referrals: NONE *PRIMARY CARE P,. [Primary Care Provider] - As per Instructions
[2019-01-26] MEDS: PANTOPRAZOLE SODIUM 40 MG VIAL IVP SCH ×2 (10:04→21:23)
[2019-01-26] MEDS: MEMANTINE HCL 5 MG TAB PO SCH ×2 (10:04→21:23)
[2019-01-26] MEDS: ACETAMINOPHEN 500 MG TAB PO SCH ×2 (10:05→21:20)
[2019-01-26] MEDS: SENNOSIDES/DOCUSATE SODIUM TAB PO SCH ×2 (10:06→21:22)
[2019-01-26] MEDS: CITALOPRAM 20 MG TAB PO SCH (10:06)
[2019-01-26] MEDS: HEPARIN 5,000 UNIT/0.5 ML INJ SC SCH ×2 (10:06→21:22)
[2019-01-26] MEDS: guaiFENesin 600 MG TAB.ER PO SCH ×2 (10:06→21:22)
[2019-01-26] MEDS: clonazePAM 0.5 MG TAB PO SCH ×2 (10:08→17:01)
[2019-01-26] MEDS: POLYETHYLENE GLYCOL 3350 17 GM PKT PO SCH (11:39)
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
[2019-01-26] MEDS: OLANZapine 2.5 MG TAB PO SCH (17:01)
--- NOTE | 2019-01-26 19:04 | GDS ---
[f rep st] DISCHARGE SUMMARY DISCHARGE DIAGNOSES: 1. Right femoral neck fracture. 2. Aspiration pneumonia. 3. Episode of nonresponsiveness. 4. Acute blood loss anemia. 5. Tachycardia. 6. Hypertension. 7. Severe dementia. 8. Chronic kidney disease. 9. Hyperglycemia. 10. Hypokalemia. CONSULTATION: Clark Laurent MD HISTORY OF PRESENT ILLNESS: Briefly, the patient is an 83-year-old gentleman who was admitted on Jan, after having hip pain. He had an unwitnessed fall and was noted to have a right femoral neck fracture. He had surgery during his stay that was uneventful. He has underlying severe dementi a. He had an episode of vomiting. Subsequently, a chest x-ray was performed that noted he had an as piration pneumonia. He was treated with IV antibiotics. He is markedly improved. He will be discha rged to a shelter facility for further care. HOSPITAL COURSE: 1. Right femoral neck fracture, status post right hip hemiarthroplasty. It is difficult for PT and OT to work with him due to severe dementia but overall, he has been doing okay with this. 2. Aspiration pneumonia after vomiting. He is on a dysphagia diet. He was treated with Unasyn. He had some tachycardia and tachypnea. They both have resolved. 3. Episode of nonresponsiveness. He had a CT of his head on January 23 which showed nothing acute. 4. Acute blood loss anemia. He was given a unit of blood. In addition, he was started on a proton pump inhibitor. He had 1 dark tarry stool. This could get further evaluated once he gets better fro m his surgery. 5. Tachycardia. His CTA shows no pulmonary embolism. 6. Hypertension, resolved. 7. Severe dementia, on home medications. 8. Chronic kidney disease, stable. 9. Hyperglycemia, stress induced. 10. Hypokalemia. One dose of oral potassium was given. DISCHARGE CONDITION: Stable blood pressure is 159/84, heart rate of 86, respiratory rate of 14, O2 s ats on room air 92%, temperature is 36.3 Celsius. MEDICATIONS AT DISCHARGE: Please see EMR. DISCHARGE INSTRUCTIONS: 1. Recommending holding aspirin for the next several weeks. 2. Give 9 more doses of the Augmentin. 3. Hold Keflex while on this medication. 4. Further followup in regard to his heme-positive stool. 5. Continue heparin until he is more mobile. Greater than 30 minutes discharging and coordinating the patient's care. /[id number]/MODL
[2019-01-26] MEDS: DONEPEZIL HCL 5 MG TAB PO SCH (21:21)
[2019-01-27] MEDS: AMPICILLIN/SULBACTAM 3 GM in NS 100 ML IV SCH ×4 (03:49→23:09)
[2019-01-27] MEDS: HEPARIN 5,000 UNIT/0.5 ML INJ SC SCH ×2 (08:01→20:35)
[2019-01-27] MEDS: PANTOPRAZOLE SODIUM 40 MG VIAL IVP SCH ×2 (08:01→23:09)
[2019-01-27] MEDS: CITALOPRAM 20 MG TAB PO SCH (08:12)
[2019-01-27] MEDS: ACETAMINOPHEN 500 MG TAB PO SCH ×2 (08:12→20:36)
[2019-01-27] MEDS: SENNOSIDES/DOCUSATE SODIUM TAB PO SCH ×2 (08:12→20:37)
[2019-01-27] MEDS: clonazePAM 0.5 MG TAB PO SCH ×2 (08:13→17:57)
[2019-01-27] MEDS: MEMANTINE HCL 5 MG TAB PO SCH ×2 (08:13→20:36)
[2019-01-27] MEDS: POLYETHYLENE GLYCOL 3350 17 GM PKT PO SCH (08:17)
[2019-01-27] MEDS: guaiFENesin 600 MG TAB.ER PO SCH (08:57)
--- NOTE | 2019-01-27 12:49 | HOSPPROG ---
Hospitalist Progress Note Assessment/Plan: 83 year old male with pmh of severe dementia admitted after a fall for a hip fracture. *right femoral neck fx -s/p r hip hemiarthroplasty -PT and OT *pna / concern for aspiration/ vomited recently -ST seeing - on dysphagia diet -reviewed chest x ray which shows a right lower lobe infiltrate -Unasyn (started 01/23) #5/#7 -tachycardia and tachypnea both resolved -procalcitonin is 0.72 *episode of nonresponsive but has severe dementia -CT scan of head on 01/23 showed nothing acute -today he is interactive and awake *anemia, acute blood loss -improved w transfusion (was given one unit) -per his nurse-has black tarry stool, + OB screen -start a PPI -if hgb, hct decrease; consider GI consult *tachycardia -CTA shows no PE -resolved *Hypotension- Resolved *severe dementia -home meds resumed *CKD -creat 1.3 *hyperglycemia -likely stress induced *hypokalemia -oral dose of K *dvt prophylaxis: heparin *plan: patient was to be dc, but the patient's daughter, Marlee, is concerned about his care at [facility]. See CM notes. Subjective: Darren is awake and smiling. Objective: Vital Signs Temp Pulse Resp BP Pulse Ox 36.8 C 80 16 153/82 H 97 01/27/19 08:00 01/27/19 08:00 01/27/19 08:00 01/27/19 08:00 01/27/19 08:00 Laboratory Results 01/27/19 04:48 01/27/19 04:48 01/26/19 01/27/19 01/28/19 04:59 05:59 05:59 Intake Total Output Total Balance - Physical Exam Constitutional: appears nourished, chronically ill appearing Eyes: PERRL Ears, Nose, Mouth, Throat: hearing normal Cardiovascular: regular rate and rhythym Respiratory: no respiratory distress, reduced air movement Skin: warm Neurologic: other (alert ) ICD10 Worksheet Patient Problems: Problems Problem Status Onset Fracture of femoral neck, right, closed Acute
--- NOTE | 2019-01-27 17:32 | ASMTCMCOM ---
CM Note CM Note Notes: CM call to daughter Marlee, . Marlee shared her experience with [facility] and interest in addressing complaints/issues her father has experienced while staying at [facility]. She states she thinks speaking with APS on Monday is necessary to determine next steps. She is open to transferring to another facility but states she does not know if this is a possibility given dementia diagnosis and Medicaid as coverage, if possible she would like a referral to [place]. CM shared we can place a referral to [facility], she declines this referral. She states she is open to helping learn what next steps can be and wants her father to be stable before discharging. It seems options could be returning to [facility] depending on what APS recommendations are or transferring to another facility preferably closer to her in [place]. CM to follow. D/C Plan: SNF to LTC Date Signed: 01/27/2019 05:32 PM Electronically Signed By:Porsche Franco
[2019-01-27] MEDS: OLANZapine 2.5 MG TAB PO SCH (17:57)
[2019-01-27] MEDS: DONEPEZIL HCL 5 MG TAB PO SCH (20:36)
[2019-01-27] MEDS: guaiFENesin 200 MG TAB PO SCH (23:10)
[2019-01-28] MEDS: AMPICILLIN/SULBACTAM 3 GM in NS 100 ML IV SCH ×2 (04:00→08:06)
[2019-01-28] MEDS: guaiFENesin 200 MG TAB PO SCH ×2 (04:00→08:10)
[2019-01-28] MEDS: clonazePAM 0.5 MG TAB PO SCH (08:07)
[2019-01-28] MEDS: CITALOPRAM 20 MG TAB PO SCH (08:07)
[2019-01-28] MEDS: PANTOPRAZOLE SODIUM 40 MG VIAL IVP SCH (08:07)
[2019-01-28] MEDS: HEPARIN 5,000 UNIT/0.5 ML INJ SC SCH (08:07)
[2019-01-28] MEDS: ACETAMINOPHEN 500 MG TAB PO SCH (08:08)
[2019-01-28] MEDS: SENNOSIDES/DOCUSATE SODIUM TAB PO SCH (08:08)
[2019-01-28] MEDS: MEMANTINE HCL 5 MG TAB PO SCH (08:09)
[2019-01-28] MEDS: POLYETHYLENE GLYCOL 3350 17 GM PKT PO SCH (08:20)
[2019-01-28 08:29] VITALS: BP 155/89
--- NOTE | 2019-01-28 12:46 | ASMTCMCOM ---
CM Note CM Note Notes: Spoke with Lyn at [facility] to see if they knew about pt dghtr Marlee's concern, Marlee has not let MV know of concerns while pt has been at [facility]. MV has had a communication plan w Marlee for three years now where they call her weekly to discuss pt care and this hospitalization Marlee has not returned MV calls. Lyn reports during a phone conversation this morning with Marlee, Marlee was not willing to discuss with Lyn how to get pt back to . Lyn will consider what other [facility] facilities are able to take pt, referrals sent to [facility]. This CM spoke with Marlee, this CM stated pt is medically stable for d/c and where he will d/c to needs to be known, Marlee is insistent [facility] find another LTC facility for pt. Marlee is not interested in pt going to a different SNF rehab under Medicare benefit unless pt can live at the new SNF. Marlee lives in [facility] and several SNF referrals were sent in [facility] in [facility] to see if pt can be accepted for SNF to know all options. Marlee also insists she speak with APS before pt d/c. This morning Marlee is very upset and is not able to have a constructive conversation with this CM, she is referred to CM Director Hunter. PT does rec SNF. Pt likely does not need a locked facility as he is not mobile now, pt has no concerning behaviors related to dementia per RN February. Pt PASRR does not trigger. CM to follow. Date Signed: 01/28/2019 12:43 PM Electronically Signed By:LUBNA Carrasquillo
--- NOTE | 2019-01-28 14:30 | ASMTLACE ---
LACE Length of stay for Answers: 7-13 days current admission Acuity / Level of Answers: Yes Care: Did the patient have an inpatient admission? Comorbidities - select Answers: Any tumor (including all that apply lymphoma or leukemia) Dementia Other Notes: Hyperthyroid # of Emergency department Answers: 1-2 visits in the last 6 months Score: 15 Date Signed: 01/28/2019 02:29 PM Electronically Signed By:LUBNA Carrasquillo
--- NOTE | 2019-01-28 14:32 | ASMTCMCOM ---
CM Note CM Note Notes: CM director Hunter spoke with pt dghtr corine Whalen/jody arranged for 1400 back to [facility]. Hunter to follow up with pt kimberhtr at . Orders sent in [employer]. CAM massey arranged for 1400, copy of PCS in chart. GIA February to call report. Date Signed: 01/28/2019 02:31 PM Electronically Signed By:LUBNA Carrasquillo
--- NOTE | 2019-01-28 14:33 | ASDISCHSUM ---
Discharge Information Plan Status:SNF Medically Cleared to Leave: Discharge Date:01/28/2019 01:32 PM CM D/C Disposition: ADT D/C Disposition:Intermediate Facility Projected Discharge Date:01/22/2019 11:00 AM Transportation at D/C:ALS/BLS Discharge Delay Reason: Follow-Up Date:01/22/2019 11:00 AM Discharge Slot: Final Diagnosis: Placement Information Referral Type:*Senior Living/SNF Referral ID:[id number] Provider Name:[facility] [place] Address 1:[address] Address 2: City:[place] Selection Factors: State:[place] Patient Contact Information Contact Name:KG Relationship:Daughter Address:[address] City:[place] Alternate Phone: State/Zip Code:[place] [address] Email: Financial Information Financial Class:Medicare Primary Plan Desc:MEDICARE INPATIENT Primary Plan Number:[id number] Secondary Plan Desc:MED[place] Secondary Plan Number:[id number] Assessment Information LACE LACE Length of stay for Answers: 7-13 days current admission Acuity / Level of Answers: Yes Care: Did the patient have an inpatient admission? Comorbidities - select Answers: Any tumor (including all that apply lymphoma or leukemia) Dementia Other Notes: Hyperthyroid # of Emergency department Answers: 1-2 visits in the last 6 months Score: 15 Date Signed: 01/28/2019 02:29 PM Electronically Signed By:LUBNA Carrasquillo [facility] CM Progress Note CM Note CM Note Notes: Pt presented to the Emergency Department via EMS s/p an unwitnessed fall with right hip pain. Pt was found to have a right hip fracture. History includes severe dementia, hyperthyroidism and cancer. Per MD notes, pt lives in [facility]. Pt's dghtr is his POA. He also has a inspector and sorter. Discharge needs remain unclear at this time. CM will continue to follow. Discharge Plan: To be determined Date Signed: 01/20/2019 05:11 PM Electronically Signed By:Katheryn Wei RN [facility] CM Progress Note CM Note CM Note Notes: Pt had surgery on 01/20 for hip fracture. Pt is resident at [facility]. PT recommending SNF at this time. Referral sent to [facility]. Pt's dtr is POA. CM to follow. D/C Plan: [facility] Date Signed: 01/21/2019 04:29 PM Electronically Signed By:Sussy Hernandez [facility] CM Progress Note CM Note CM Note Notes: Pts case discussed w/ Nafisa Ashby NP. Pt is not medically stable to d/c at this time. Updates sent to [facility] and CM updated Lyn. CM to follow. Plan: [facility] Date Signed: 01/24/2019 10:50 AM Electronically Signed By:DUARTE Marquez [facility] CM Progress Note CM Note BERNABE Note Notes: Spoke with pt's daughter Marlee this morning regarding pt's d/c back to [facility] today. She became upset saying he couldn't go back there as has been" neglecting him for years." Hospitalist Nafisa came in at this time and said this was the first time Marlee had mentioned this and they had interacted a few times during pt's stay at [facility]. There is no documentation in the ED report or anywhere in the pt's chart about the daughter's concerns. Marlee insisted needed to make a report to APS. BERNABE explained to her that it would be better for her to make the report as she was aware of the facts regarding his care at [facility] and we were not. She still insisted so CM discussed her concerns and called APS. Marlee also called APS. Marlee said pt has been at since 2016 and she has made numerous complaints to the [facility] (including the [facility]), the [facility], and to [facility]. She reported pt has been neglected and given the wrong medications during his stay there. Marlee also insisted the hospital has the responsibility to find him somewhere else to live. BERNABE attempted to let her know we would assist her with finding other options and can send referrals from here but she would need to participate in the process. BERNABE also offered to provide her with [employer] [place] of the area so she can look at other facilities; she did not want them. BERNABE spoke with Nursing Support Services Coordinator and Weekend demand inspector - they were unaware of daughter's recent concerns. There have been some issues over the past 3 years but per , appeared to have been resolved. It is unknown if APS will accept the report and investigate. Marlee was difficult to redirect and on one track: to get [facility] CM to find her father another place to live and not have him return to . Pt is at on Medicaid. D/C plan: TBD Date Signed: 01/26/2019 04:33 PM Electronically Signed By:LUBNA Cueto [facility] CM Progress Note CM Note CM Note Notes: CM call to daughter Marlee, . Marlee shared her experience with [facility] and interest in addressing complaints/issues her father has experienced while staying at [facility]. She states she thinks speaking with APS on Monday is necessary to determine next steps. She is open to transferring to another facility but states she does not know if this is a possibility given dementia diagnosis and Medicaid as coverage, if possible she would like a referral to [place]. CM shared we can place a referral to [facility], she declines this referral. She states she is open to helping learn what next steps can be and wants her father to be stable before discharging. It seems options could be returning to [facility] depending on what APS recommendations are or transferring to another facility preferably closer to her in [place]. CM to follow. D/C Plan: SNF to LTC Date Signed: 01/27/2019 05:32 PM Electronically Signed By:Porsche Franco [facility] CM Progress Note CM Note CM Note Notes: Spoke with Lyn at [facility] to see if they knew about pt dghtr Marlee's concern, Marlee has not let know of concerns while pt has been at [facility]. MV has had a communication plan w Marlee for three years now where they call her weekly to discuss pt care and this hospitalization Marlee has not returned MV calls. Lyn reports during a phone conversation this morning with Marlee, Marlee was not willing to discuss with Lyn how to get pt back to . Lyn will consider what other [facility] facilities are able to take pt, referrals sent to [facility]. This CM spoke with Marlee, this CM stated pt is medically stable for d/c and where he will d/c to needs to be known, Marlee is insistent [facility] find another LTC facility for pt. Marlee is not interested in pt going to a different SNF rehab under Medicare benefit unless pt can live at the new SNF. Marlee lives in [facility] and several SNF referrals were sent in [facility] in [employer] to see if pt can be accepted for SNF to know all options. Marlee also insists she speak with APS before pt d/c. This morning Marlee is very upset and is not able to have a constructive conversation with this CM, she is referred to CM Director Harrison. PT does rec SNF. Pt likely does not need a locked facility as he is not mobile now, pt has no concerning behaviors related to dementia per RN February. Pt PASRR does not trigger. CM to follow. Date Signed: 01/28/2019 12:43 PM Electronically Signed By:LUBNA Carrasquillo [facility] CM Progress Note CM Note CM Note Notes: CM director Hunter spoke with pt dghtr Marlee, d/c arranged for [address] back to [facility] [place]. Hunter to follow up with pt leesar at . Orders sent in [employer]. CAM massey arranged for 1400, copy of PCS in chart. RN February to call report. Date Signed: 01/28/2019 02:31 PM Electronically Signed By:LUBNA Carrasquillo Intervention Information Intervention Type:*Incorrect Registration Date of Service:01/20/2019 04:13 PM Patient Type:Observation Staff Member:Key Haider Hours: Discipline: Severity: Comment: Intervention Type:*IM-Signed Date of Service:01/25/2019 10:38 AM Patient Type:Inpatient Staff Member:Ginger Michael Hours: Discipline: Severity: Comment:Patient has severe dementia. He gave m e permission to contact his daughter, Marlee, to go over the Medicare Important Message. I had to leave a voicemail.
--- NOTE | 2019-01-28 15:04 | GDS ---
[f rep st] DISCHARGE SUMMARY DISCHARGE DIAGNOSES: 1. Right femoral neck fracture. 2. Aspiration pneumonia. 3. Episode of nonresponsiveness. 4. Acute blood loss anemia. 5. Tachycardia. 6. Hypertension. 7. Severe dementia. 8. Chronic kidney disease. 9. Hyperglycemia. 10. Hypokalemia. CONSULTATIONS: Dr. Laurent. HISTORY OF PRESENT ILLNESS: The patient is an 83-year-old male who was admitted after having hip colt n. He had an unwitnessed fall and was noted to have some right femoral neck fracture. He does have noted severe dementia. He was evaluated and diagnosed with: 1. Right femoral neck fracture. This is status post right hip hemiarthroplasty. PT and OT are cont inued. It is difficult for them to work with the patient as he has severe dementia. 2. Aspiration pneumonia. This was in the situation of vomiting. He is on a dysphagia diet. He has been treated with antibiotic therapy and this is considered resolved. 3. Episode of nonresponsiveness. CT of his head was performed showing nothing acute. His unrespons steven spontaneously resolved. 4. Acute blood loss anemia. He did receive a transfusion of 1 unit of packed red blood cells during this hospitalization, as well as proton pump inhibitor. No further evaluation warranted. 5. Tachycardia. There are no pulmonary emboli. 6. Hypertension. This is resolved. 7. Severe dementia. The patient is at his baseline mentation. 8. Chronic kidney disease. This is stable. 9. Hypokalemia. Received replacement. DISPOSITION: The patient will return to [place] where he normally resides. PHYSICAL EXAM: GENERAL: The patient is alert. VITAL SIGNS: Afebrile at 37.4, pulse 79, respirator y rate is 18, blood pressure is 155/89. He is saturating 96% on room air. I have seen and evaluated the patient on the day of discharge. DISCHARGE MEDICATIONS: Please refer to EMR form. New medications, include Augmentin, Mucinex, hepar in, Protonix MiraLAX, Senokot. FOLLOWUP: Followup will be with the patient's primary care physician, as well as Dr. Laurent. I spent greater than 35 minutes in the care, coordination, management of the patient's disposition. /[id number]/MODL
== END 2019-01-28 13:32 | DRG 469 ==
LOC: EDUNIT# → F3N 09:51 → OBSVTOIN 12:27 → F3N 01-26 11:57
PROVIDERS: ADMIT Internal Medicine; ATTEND Internal Medicine
PROC: 0QH604Z Insertion of Internal Fixation Device into Right Upper Femur, Open Approach (ICD-10-PCS; principal; 2019-01-20 14:30)
PROC: 0SRR0J9 Replacement of Right Hip Joint, Femoral Surface with Synthetic Substitute, Cemented, Open Approach (ICD-10-PCS; principal; 2019-01-20 14:30)
PROC: 30233N1 Transfusion of Nonautologous Red Blood Cells into Peripheral Vein, Percutaneous Approach (ICD-10-PCS; 2019-01-24)
DX: S72.041A Displaced fracture of base of neck of right femur, initial encounter for closed fracture (principal); J69.0 Pneumonitis due to inhalation of food and vomit; D62 Acute posthemorrhagic anemia; M96.661 Fracture of femur following insertion of orthopedic implant, joint prosthesis, or bone plate, right leg; W19.XXXA Unspecified fall, initial encounter; R00.0 Tachycardia, unspecified; I12.9 Hypertensive chronic kidney disease with stage 1 through stage 4 chronic kidney disease, or unspecified chronic kidney disease; N18.2 Chronic kidney disease, stage 2 (mild); F03.90 Unspecified dementia, unspecified severity, without behavioral disturbance, psychotic disturbance, mood disturbance, and anxiety; R73.9 Hyperglycemia, unspecified; E87.6 Hypokalemia; E03.9 Hypothyroidism, unspecified; K21.9 Gastro-esophageal reflux disease without esophagitis
CPT/HCPCS: 87449-90; 92526-GN; 92610-GN; 96374; 97110-GP; 97162-GP; 97165-GO; 97530-GO; 97530-GP; 97535-GO; C1713; J0171; J0295; J0690; J1644; J1940; J2270; J2405; J2704; J3010; P9016; Q9967